=== PATIENT | male | born 1965 | race Hispanic/Latino ===

== ENCOUNTER → 2021-05-18 | Day surgery (SDC) | payer OTHER ==
[~2021-05-18] MED LIST: FENTANYL CITRATE/PF 100MCG/2 ML INJ ONE; GLUCAGON FOR INJ 1 MG VIAL ONE; HYOSCYAMINE SULFATE 0.5 MG/ML INJ ONE; LIDOCAINE HCL 2% LOCAL INJ 5 ML SDV VIAL INJ ONE; MIDAZOLAM HCL 2 MG/2 ML VIAL ONE; PROPOFOL IV EMULSION 10 MG/ML 20 ML VIAL ONE; SIMVASTATIN40 MG PO
[2021-05-18 16:15] VITALS: BP 146/97
== END | disposition home or self-care (01) ==
LOC: OR 10:03
PROVIDERS: ATTEND Internal Medicine Gastroenterology
DX: Z12.11 Encounter for screening for malignant neoplasm of colon (principal); D12.0 Benign neoplasm of cecum; D12.3 Benign neoplasm of transverse colon; D12.5 Benign neoplasm of sigmoid colon; K62.1 Rectal polyp; K58.9 Irritable bowel syndrome, unspecified; K64.8 Other hemorrhoids; G47.33 Obstructive sleep apnea (adult) (pediatric); I10 Essential (primary) hypertension; Z01.810 Encounter for preprocedural cardiovascular examination
CPT/HCPCS: 45380; 45384; 45385; 93005; J1610; J1980; J2001; J2250; J2704; J3010; 45378